=== PATIENT | female | born 1980 | race Caucasian/White ===

== ENCOUNTER 2017-01-03 10:32 | Emergency (ER) | payer OTHER ==
[~2017-01-03] VITALS: Ht 167.6 cm; Wt 78.9 kg
[2017-01-03 10:35] VITALS: BP 130/78
[2017-01-03] MEDS ORDERED: SERT100T PO (10:47)
[2017-01-03] MEDS ORDERED: CLON1TAB PO (10:47)
== END 2017-01-03 11:04 | disposition home or self-care (01) ==
LOC: ER 10:34
DX: Z76.0 Encounter for issue of repeat prescription (principal); F43.10 Post-traumatic stress disorder, unspecified; F39 Unspecified mood [affective] disorder; F41.0 Panic disorder [episodic paroxysmal anxiety]
CPT/HCPCS: A4606; Z7502; Z7610

== ENCOUNTER 2017-01-08 11:53 | Emergency (ER) | payer OTHER ==
[~2017-01-08] VITALS: Ht 167.6 cm; Wt 79.4 kg
[~2017-01-08 11:53] MED LIST: CLON1TAB PO; SERT100T PO
--- NOTE | 2017-01-08 11:55 | NUR ---
PT AMBULATORY TO ER BED 14. C/O RT RIB AREA AND RUQ ABDOMINAL PAIN THAT STARTED THIS AM WORST W/ DEEP BREATHING. PT STATES WAS DOING [employer] 2 DAYS AGO. DENIES HEAD TRAUMA. GOWNED AND PLACED ON MONITOR. AWAITING MD PUCKETT.
--- NOTE | 2017-01-08 12:46 | NUR ---
DELVIN HERNANDEZ AT BEDSIDE FOR EVAL.
[2017-01-08] MEDS ORDERED: ONDANSETRON HCL/PF 4 MG/2 ML VIAL IVP ONE (13:00)
[2017-01-08] MEDS ORDERED: MORPHINE SULFATE INJ 2 MG/ML DISP.SYRIN IV ONE (13:00)
[2017-01-08] MEDS ORDERED: IV NS 0.9% 1,000 ML BAG IV ONE (13:00)
[2017-01-08] MEDS ORDERED: MORPHINE SULFATE INJ 4 MG/ML DISP.SYRIN ONE (13:07)
--- NOTE | 2017-01-08 13:07 | NUR ---
IV LINE STARTED BLOOD DRAWN AND SENT TO LAB.
[2017-01-08] MEDS ORDERED: IV SET PRIMARY 1 EA INFUS.SET MC ONE (13:08)
[2017-01-08] MEDS ORDERED: IV NS 0.9% 1,000 ML ONE (13:08)
[2017-01-08] MEDS ORDERED: ONDANSETRON HCL/PF 4 MG/2 ML VIAL ONE (13:08)
[2017-01-08 13:12] LABS: EOSINOPHILS # (AUTO) 0.1 /CMM (0.0-0.7); EOSINOPHILS % (AUTO) 1.6 % (0.0-6.0); HEMOGLOBIN 13.1 g/dL (11.5-14.8); MONOCYTES # (AUTO) 0.6 /CMM (0.1-1.30); NEUTROPHILS % (AUTO) 46.1 % (43.0-81.0)
[2017-01-08 13:18] LABS: BASOPHILS % (AUTO) 0.4 % (0.0-2.0); HEMATOCRIT 39 % (33-45); LYMPHOCYTES % (AUTO) 43.2 % (20.0-44.0); MEAN CORPUSCULAR HEMOGLOBIN 31 PG (26.0-33.0); MEAN CORPUSCULAR HGB CONC 34 g/dl (31.0-36.0); MEAN CORPUSCULAR VOLUME 91 fL (82-100); MONOCYTES % (AUTO) 8.7 % (2.0-12.0); NEUTROPHILS # (AUTO) 3.3 /CMM (1.8-8.9); PLATELET COUNT (AUTO) 364 /CMM (150-450); RDW COEFFICIENT OF VARIATION 14.1 (11.5-15.0); RED BLOOD CELL COUNT(AUTO) 4.27 MIL/uL (4.0-5.2)
[2017-01-08] MEDS ORDERED: IOHEXOL-300 100 ML VIAL IV ONE (13:19)
[2017-01-08] MEDS ORDERED: IV NS 0.9% 250 ML IV ONE (13:19)
[2017-01-08] MEDS ORDERED: CT SWABBABLE VALVE TRANS SET 1 EA INFUS.SET MC ONE (13:19)
[2017-01-08 13:28] LABS: ALBUMIN 3.4 g/dL (3.4-5.0); BILIRUBIN,DIRECT 0.1 mg/dL (0.0-0.2); BILIRUBIN,TOTAL 0.4 mg/dL (0.2-1.0); CALCIUM, SERUM 8.2 mg/dL (8.5-10.1); CREATININE 0.8 mg/dL (0.6-1.3); POTASSIUM 4.4 mmol/L (3.5-5.1); TOTAL PROTEIN, SERUM 7.4 g/dL (6.4-8.2)
--- NOTE | 2017-01-08 13:34 | NUR ---
PT TO RADIOLOGY FOR ABDOMINAL/PELVIC CT SCAN VIA WHHEELCHAIR.
[2017-01-08 13:42] LABS: INR 1.02 (0.87-1.13); PROTHROMBIN TIME 10.6 SECS (9.5-12.7)
[2017-01-08] MEDS ORDERED: HYDROMORPHONE 1 MG/1 ML DISP.SYRIN ONE (13:56)
[2017-01-08] MEDS ORDERED: HYDROMORPHONE 1 MG/1 ML DISP.SYRIN IV ONE (14:00)
[2017-01-08] MEDS ORDERED: DEXTROSE 50%-WATER 50 ML DISP.SYRIN IVP ONE (14:00)
--- NOTE | 2017-01-08 14:25 | NUR ---
Patient discharged to home in stable condition. Written and verbal after care instructions given. Patient verbalizes understanding of instruction.IV removed. Catheter intact and site benign. Pressure and 4x4 applied to site. No bleeding noted.
[2017-01-08 14:26] VITALS: BP 115/76
== END 2017-01-08 14:27 | disposition home or self-care (01) ==
LOC: ER 11:55
DX: S30.1XXA Contusion of abdominal wall, initial encounter (principal); S20.211A Contusion of right front wall of thorax, initial encounter; F41.0 Panic disorder [episodic paroxysmal anxiety]; F43.10 Post-traumatic stress disorder, unspecified; X58.XXXA Exposure to other specified factors, initial encounter; Y92.89 Other specified places as the place of occurrence of the external cause; Y93.89 Activity, other specified; Y99.8 Other external cause status
CPT/HCPCS: 36415; 71010-TC; 80048-TC; 80076-TC; 83690-TC; 85025-TC; 85730-TC; A4606; J1170; J2270; J2405; J7030; J7050; Q9967; Z7610

== ENCOUNTER 2017-02-17 14:21 | Emergency (ER) | payer MEDICAID, OTHER ==
[~2017-02-17] VITALS: Ht 167.6 cm; Wt 80.7 kg
[2017-02-17 14:27] VITALS: BP 121/70
[2017-02-17] MEDS ORDERED: IBUPROFEN 400 MG TABLET PO ONE (15:00)
[2017-02-17] MEDS ORDERED: FLUOXETINE HCL 10 MG CAPSULE (15:03)
[2017-02-17] MEDS ORDERED: DIAZEPAM 2 MG (15:03)
[2017-02-17] MEDS ORDERED: IBUPROFEN 400 MG TABLET ONE (15:15)
--- NOTE | 2017-02-17 15:39 | NUR ---
PT REFUSING IBUPROFEN. WANTS NORCO OR TYL #3. SIGNED AMA. LEFT ED. STABLE CONDITION.
== END 2017-02-17 15:42 | disposition home or self-care (01) ==
LOC: ER 14:27
DX: R51 Headache (principal); Z53.20 Procedure and treatment not carried out because of patient's decision for unspecified reasons; F43.10 Post-traumatic stress disorder, unspecified; V43.52XA Car driver injured in collision with other type car in traffic accident, initial encounter; Y93.89 Activity, other specified; Y92.488 Other paved roadways as the place of occurrence of the external cause; Y99.8 Other external cause status
CPT/HCPCS: 99281; A4606; Z7610; Z7502

== ENCOUNTER 2021-07-18 12:38 | Emergency (ER) | payer MEDICAID, OTHER ==
[~2021-07-18] VITALS: Ht 170.2 cm; Wt 77.7 kg
[~2021-07-18 12:38] MED LIST changes: +DIAZEPAM 2 MG; +FLUOXETINE HCL 10 MG CAPSULE
--- NOTE | 2021-07-18 12:42 | NUR ---
PT BIBS FROM WORK C/O RLQ PAIN 05/06 RADIATING TO LEFT UPPER AND LOWER QUAD AND BACK. C/O N/V X4 TODAY. STARTED LAST NIGHT WORST TODAY. PT A/OX3. TOLERATING R/A WELL WITH NO SOB. CONNECTED PT TO POX AND MONITOR.
--- NOTE | 2021-07-18 12:49 | NUR ---
URINE COLLECTED AND SENT TO LAB
--- NOTE | 2021-07-18 12:50 | NUR ---
BIBS FOR C/O RLQ PAIN 10/10 RADIATING TO LEFT UPPER AND LOWER QUAD AND BACK. C/O N/V. THE PATIENT IS ALERT AND ORIENTED X4. RESPIRATION REGULAR AND UNLABORED. WILL CONTINUE TO MONITOR THE PATIENT.
--- NOTE | 2021-07-18 13:11 | NUR ---
L HAND #20G S/L; PATENT AND INTACT. BLOOD COLLECTED AND SENT TO LAB
[2021-07-18] MEDS ORDERED: ONDANSETRON HCL/PF 4 MG/2 ML VIAL ONE (13:13)
[2021-07-18] MEDS ORDERED: MORPHINE SULFATE INJ 4 MG/ML DISP.SYRIN ONE (13:13)
--- NOTE | 2021-07-18 13:25 | NUR ---
Yari armstrong in ED - 07/18/21 at 1326 by JOY COVID ANTIGEN AND PCR COLLECTED AND SENT TO LAB
[2021-07-18] MEDS ORDERED: MORPHINE SULFATE INJ 2 MG/ML DISP.SYRIN IV ONE (13:30)
[2021-07-18] MEDS ORDERED: IV NS 0.9% 500 ML BAG IV ONE (13:30)
[2021-07-18] MEDS ORDERED: ONDANSETRON HCL/PF 4 MG/2 ML VIAL IVP ONE (13:30)
[2021-07-18 13:31] LABS: BASOPHILS % (AUTO) 0.6 % (0.0-2.0); EOSINOPHILS % (AUTO) 0.7 % (0.0-6.0); HEMATOCRIT 38 % (33-45); HEMOGLOBIN 12.8 g/dL (11.5-14.8); LYMPHOCYTES # (AUTO) 1.3 K/uL (0.8-4.8); MEAN CORPUSCULAR HGB CONC 34 g/dl (31.0-36.0); MEAN CORPUSCULAR VOLUME 96 fL (82-100); MONOCYTES # (AUTO) 0.3 K/uL (0.1-1.30); MONOCYTES % (AUTO) 4.7 % (2.0-12.0); PLATELET COUNT (AUTO) 305 K/uL (150-450); RED BLOOD CELL COUNT(AUTO) 3.95 MIL/uL (4.0-5.2); WHITE BLOOD COUNT (AUTO) 6.7 K/uL (4.3-11.0)
--- NOTE | 2021-07-18 14:30 | NUR ---
US TECH AT PT'S BEDSIDE
--- NOTE | 2021-07-18 15:20 | NUR ---
PT TAKEN TO CT VIA RUPERT
--- NOTE | 2021-07-18 16:41 | NUR ---
F/U WITH [facility] WITH CHEMISTRY. ETA RESULTS IN 10 MINUTES.
[2021-07-18 16:45] LABS: ALBUMIN 3.4 g/dL (3.4-5.0); BILIRUBIN,TOTAL 0.2 mg/dL (0.2-1.0); CALCIUM, SERUM 8.4 mg/dL (8.5-10.1); CREATININE 0.6 mg/dL (0.6-1.3); POTASSIUM 4.6 mmol/L (3.5-5.1); TOTAL PROTEIN, SERUM 6.7 g/dL (6.4-8.2)
[2021-07-18] MEDS ORDERED: MEDR10TA73 PO (17:00)
[2021-07-18 17:28] VITALS: BP 121/87
--- NOTE | 2021-07-18 17:28 | NUR ---
The patient is alert and oriented x4. Denies pain. In room air and denies SOB. Respiration regular and unlabored. IV removed. Catheter intact and site benign. Pressure and 4x4 applied to site. No bleeding noted.Patient discharged to home in stable condition. Written and verbal after care instructions given. Patient verbalizes understanding of instruction.
--- NOTE | 2021-07-18 17:28 | NUR ---
Patient discharged to home in stable condition. RX Written and verbal after care instructions given. Patient verbalizes understanding of instruction. PT ambulatory with a steady gait
== END 2021-07-18 17:29 | disposition home or self-care (01) ==
LOC: ER 12:41
DX: N94.6 Dysmenorrhea, unspecified (principal); D25.9 Leiomyoma of uterus, unspecified; Z88.6 Allergy status to analgesic agent; Z88.8 Allergy status to other drugs, medicaments and biological substances; Z90.49 Acquired absence of other specified parts of digestive tract
CPT/HCPCS: 36415; 74176; 76856; 80048; 80076; 83690; 84703; 85025; 96361; 96374; 96375; 99284; J2270; J2405; J7040

== ENCOUNTER 2021-12-07 11:07 | Emergency (ER) | payer OTHER ==
[~2021-12-07] VITALS: Ht 170.2 cm; Wt 78.5 kg
[~2021-12-07 11:07] MED LIST changes: +MEDR10TA73 PO
--- NOTE | 2021-12-07 11:25 | NUR ---
41 yrs female came walking in to EDc/o abdominale pain SINCE LAST NIGHT with n/v 05/06
--- NOTE | 2021-12-07 11:45 | NUR ---
given seen by DR. Jose MARLOW ORDER WAS
[2021-12-07 11:51] LABS: BILIRUBIN,URINE NEGATIVE (NEGATIVE); COLOR,URINE YELLOW (YELLOW); LEUKOCYTE ESTERASE ,URINE MODERATE (NEGATIVE); NITRITE, URINE NEGATIVE (NEGATIVE); PROTEIN,URINE NEGATIVE (NEGATIVE); UGLUCOSE NEGATIVE (NEGATIVE); UROBILINOGEN,URINE 0.2 EU/dL (0.2)
--- NOTE | 2021-12-07 11:57 | NUR ---
blood drow by lab tachy
[2021-12-07 12:01] LABS: BASOPHILS % (AUTO) 0.8 % (0.0-2.0); EOSINOPHILS % (AUTO) 0.4 % (0.0-6.0); HEMATOCRIT 41 % (33-45); HEMOGLOBIN 13.7 g/dL (11.5-14.8); LYMPHOCYTES # (AUTO) 1.5 K/uL (0.8-4.8); LYMPHOCYTES % (AUTO) 24.8 % (20.0-44.0); MEAN CORPUSCULAR HGB CONC 33 g/dl (31.0-36.0); MEAN CORPUSCULAR VOLUME 97 fL (82-100); MONOCYTES # (AUTO) 0.3 K/uL (0.1-1.30); NEUTROPHILS # (AUTO) 4.1 K/uL (1.8-8.9); PLATELET COUNT (AUTO) 323 K/uL (150-450); RED BLOOD CELL COUNT(AUTO) 4.24 MIL/uL (4.0-5.2)
[2021-12-07 12:07] LABS: CALCIUM, SERUM 8.2 mg/dL (8.5-10.1); CREATININE 0.7 mg/dL (0.6-1.3); POTASSIUM 4.6 mmol/L (3.5-5.1)
--- NOTE | 2021-12-07 12:11 | NUR ---
pelvic US DONE AT BED side
[2021-12-07 12:17] LABS: ALBUMIN 3.6 g/dL (3.4-5.0); BILIRUBIN,DIRECT 0.1 mg/dL (0.0-0.2); BILIRUBIN,TOTAL 0.3 mg/dL (0.2-1.0)
[2021-12-07 12:35] LABS: BACTERIA,URINE None seen /HPF (None Seen); RBC,URINE 0-2 /HPF (0-2); SQUAMOUS EPITHELIAL CELL,UR Rare /HPF (None Seen); WBC,URINE NONE SEEN /HPF (0-3)
--- NOTE | 2021-12-07 12:55 | NUR ---
DR. MOBLEY SPOOK WITH PT AND D/C [id number] GIVEN TO PT FULLY AND VERBLIZED UNDERSTOOD
[2021-12-07 13:18] VITALS: BP 120/77
== END 2021-12-07 13:20 | disposition home or self-care (01) ==
LOC: ER 11:17
DX: G89.29 Other chronic pain (principal); N93.8 Other specified abnormal uterine and vaginal bleeding; R10.2 Pelvic and perineal pain; D25.9 Leiomyoma of uterus, unspecified; F39 Unspecified mood [affective] disorder; Z90.49 Acquired absence of other specified parts of digestive tract; Z87.42 Personal history of other diseases of the female genital tract; Z88.8 Allergy status to other drugs, medicaments and biological substances; Z79.899 Other long term (current) drug therapy
CPT/HCPCS: 36415; 76856-TC; 80048-TC; 80076-TC; 81001; 84702-TC; 84703-TC; 85025-TC; 85730-TC; 87086-TC